=== PATIENT | female | born 1930 | race Caucasian/White ===

== ENCOUNTER 2017-03-20 10:16 | Inpatient (IN) | payer MEDICARE ==
[2017-03-20 11:00] LABS: #Lymphocytes 0.7 thou/uL (1.20-3.40); #Monocytes 0.5 thou/uL (0.11-0.59); #Neutrophils 14.8 thou/uL (1.40-6.50); %Basophils 0.3 % (0.0-1.0); %Eosinophils 0.1 % (0.0-10.0); %Lymphocytes 4.2 % (21.0-51.0); %Monocytes 3.2 % (0.0-10.0); %Neutrophils 92.2 % (42.0-75.0); Hemoglobin 11.9 g/dL (12.0-16.0); Mean Corpuscular HGB CONC 32.4 g/dL (32.0-36.0); Mean Corpuscular Hemoglobin 30.5 pg (27.0-31.0); Mean Corpuscular Volume 94.1 fl (81.0-99.0); Mean Platelet Volume 8.6 fL (7.4-10.4); Platelet Count 178 thou/uL (130-400); RBC Distribution Width 12.9 % (11.5-14.5); Red Blood Cell (RBC) Count 3.92 mill/uL (4.20-5.40)
[2017-03-20] MEDS ORDERED: fentaNYL Citrate/PF 2,000 MCG in Sodium Chloride 0.9% 60 ML IV SCH (11:05)
[2017-03-20] MEDS ORDERED: Fentanyl 100 MCG/2 ML VIAL ONE (11:09)
[2017-03-20 11:25] LABS: ALT (SGPT) 12 U/L (8-55); AST (SGOT) 19 U/L (5-34); Albumin 3.6 g/dL (3.4-4.8); Alkaline Phosphatase 93 U/L (40-150); Anion Gap 16 mmol/L (10-20); BUN (Urea Nitrogen) 19 mg/dL (9.8-20.1); Calc. Creatinine Clearance 0 mL/min (70-130); Calcium 9.6 mg/dL (7.8-10.44); Carbon Dioxide 23 mmol/L (23-31); Chloride 102 mmol/L (98-107); Estimated GFR-MDRD 48; Globulin 3.3 g/dL (2.4-3.5); Glucose 226 mg/dL (83-110); Potassium 4.1 mmol/L (3.5-5.1); Protein, Total 6.9 g/dL (6.0-8.3); Sodium 137 mmol/L (136-145)
[2017-03-20 11:30] LABS: CKMB 2.8 ng/mL (0-6.6); Troponin I 0.071 ng/mL (< 0.028)
--- NOTE | 2017-03-20 11:52 | RAD ---
PORTABLE AP CHEST XRAY: DATE: 03/20/17. HISTORY: The patient is intubated. This is for evaluation of tube placement. COMPARISON: 08/26/13. FINDINGS: The previously noted bibasilar pleural and parenchymal changes have resolved. Mild atelectasis and q uestionable tiny left pleural effusion present. There is a wedge-shaped area of increased density ov erlying the right mid lung field which could be related to focal area of pneumonitis or atelectasis. Dual-lead left subclavian cardiac pacemaking device is noted in place. There are postsurgical change s related to median sternotomy and cardiac valve replacement. A nasogastric tube is noted in place w hich courses into the upper abdomen, but the tip is not imaged. Cardiac silhouette and pulmonary vasculature are within normal limits. Vascular calcification is see n in the thoracic aorta. IMPRESSION: 1. Resolution of bibasilar pleural and parenchymal lung changes seen on the prior study. There is m ild atelectasis present at the left lung base. 2. Patchy density right mid lung zone which could be related to either atelectasis or pneumonitis. A followup chest x-ray is recommended. 3. Nasogastric tube noted in place. The tube courses into the upper abdomen, but the tip is not delma ged. POS: [facility]
[2017-03-20] MEDS ORDERED: Ondansetron HCl/PF 4 MG/2 ML Vial IVP PRN (12:00)
[2017-03-20] MEDS ORDERED: Piperacillin/Tazobactam 4.5 GM in Sodium Chloride 0.9% 100 ML IVPB SCH (12:00)
[2017-03-20] MEDS ORDERED: Acetaminophen 650 MG Suppository PR PRN (12:00)
[2017-03-20 12:20] LABS: Bilirubin Negative (Negative); Blood, Urine Negative (Negative); Clarity CLEAR (Clear); Glucose, Urine (Dipstick) 100 mg/dL (Negative); Leukocyte Negative (Negative); Nitrite Negative (Negative); Protein, Urine (Dipstick) 300 mg/dL (Neg-Trace); Specific Gravity, Urine 1.018 (1.002-1.036); Urobilinogen 0.2 mg/dL (0.2-1.0)
[2017-03-20 12:23] LABS: Base Excess (BEa) 3.3 mEq/L (0 (+/-) 2.5); CO2 Tension 43.2 mmHg (35.0-45.0); Calcium, Ionized 1.2 mmol/L (1.12-1.30); Hematocrit-ABG 38.7 % (36.0-47.0); Hemoglobin (Hb) 11.7 g/dL (12.0-16.0); O2 Tension (PaO2) 121.7 mmHg (80.0-100.0); pH, Arterial 7.43 (7.35-7.45)
[2017-03-20 12:24] LABS: Analyzer IN Cardio ER; Puncture Site RBA
[2017-03-20 12:24] LABS: Bacteria/HPF None Seen HPF (None Seen); Hyaline Casts/LPF 0-3 HYALINE CAST LPF (0-3 Hyaline); Pathc Cast-AUWi Flag 0.54 (0-2.49); RBC/HPF 0-3 HPF (0-3); Squamous Epithelial 0-3 HPF (0-3)
[2017-03-20 12:26] LABS: Renal Epithelial None Seen HPF (0-3); Transitional Epithelial NONE SEEN HPF (0-3)
[2017-03-20 15:10] LABS: Troponin I 0.094 ng/mL (< 0.028)
[2017-03-20 15:22] LABS: Lactic Acid 2.7 mmol/L (0.5-2.2)
[2017-03-20 15:41] VITALS: BMI 29.8
[2017-03-20] MEDS ORDERED: Cefepime 2 GM, Syringe 2.5 ML in Sterile Water 10 ML SLOW IVP SCH (16:00)
[2017-03-20] MEDS ORDERED: Furosemide 40 MG/4 ML VIAL SLOW IVP SCH (16:15)
[2017-03-20] MEDS ORDERED: Sedation Protocol FS ONE (16:17)
[2017-03-20] MEDS ORDERED: Lacri-Lube Opth Oint 3.5 GM TUBE EA EYE PRN (16:17)
[2017-03-20] MEDS ORDERED: Morphine 2 MG/ML SYRINGE SLOW IVP PRN ×2 (16:20→22:24)
[2017-03-20] MEDS ORDERED: DISCONTINUE PREVIOUS NARCOTIC PAIN MEDICATIONS AND BENZODIAZEPINES FS SCH (16:20)
[2017-03-20] MEDS ORDERED: Propofol 1,000 MG/100 ML VIAL IV PRN (16:20)
[2017-03-20] MEDS ORDERED: Lorazepam 2 MG/ML VIAL SLOW IVP PRN (16:20)
--- NOTE | 2017-03-20 16:46 | CON ---
DATE OF CONSULTATION: 03/20/2017 SERVICE: Pulmonary Medicine. REASON FOR CONSULTATION: Respiratory failure. HISTORY OF PRESENT ILLNESS: The patient is an 86-year-old white female. She was found down at her h ouse. Her family members initiated CPR because they were advised to do so by 911 when they did not f eel a pulse. That being said, no medications or interventions were done. Other than that by the sagar e EMS arrived, she did have a pulse. She was agonal and so she was subsequently intubated. This was a traumatic intubation with 6-0 endotracheal tube chipping the tooth and apparently causing some deg ree of laceration of the tongue. The suggestion was that she was actually biting on her tongue and t hat was not caused by the procedure. Either way, she has known cardiomyopathy and she was recently h ospitalized at [facility] for respiratory failure associated with respiratory syncytial virus. She currently cannot provide any additional elements of the historical illness. Family suggesting th at prior to her being found down, she was last seen recovering from her previous hospital stay as exp ected. PHYSICAL EXAMINATION: VITAL SIGNS: Afebrile with T-max of 99.2. Pulse 60, blood pressure 154/46, respirations 17, saturat ion 94% on 23% FiO2 and a PEEP of 5. GENERAL: Patient is intubated. She is under the influence of some sedation. That being said, she i s essentially nonresponsive presently. HEENT: Normocephalic, atraumatic. Sclerae are white, conjunctivae pink. Oral mucosa is moist witho ut lesions. LUNGS: Decent air entry. There is no prolonged expiratory phase. Rhonchi are present bilaterally, but a little worse on the right. HEART: Normal rate. Irregular. ABDOMEN: Soft, nontender, nondistended. Bowel sounds are positive. MUSCULOSKELETAL: No cyanosis or clubbing. There is diffuse 1-2+ pitting throughout the lower extrem ities. GENITOURINARY: Rojas catheter in place. NEUROLOGIC: She does not withdraw from noxious stimuli in all 4 extremities. Pupils are fixed and n onreactive though she was on fentanyl at 200 mcg per hour and her pupils are nearly pinpoint. No gag or cough is elicited. She is overbreathing the ventilator quite comfortably. Doll's eyes are curre ntly abnormal. LABORATORY DATA: WBC 16.0, hemoglobin 11.9, and platelets 178,000. A pH 7.43, pCO2 43, pO2 121 on 5 0% FiO2 at that time. Basic metabolic profile and liver function studies are essentially unremarkabl e. Cardiac enzyme is up trending to 0.094. Lactate is also up trending to 0.27. Urinalysis is unre markable. Influenza A and B is unremarkable. As previously noted, recent respiratory PCR was positi ve for RSV, by history. IMAGING: Chest x-ray demonstrates endotracheal tube is 7 cm above the foreign. Enteric catheter is c oursing midline, but I can see where it terminates. PAST MEDICAL HISTORY: 1. Chronic systolic heart failure. 2. Severe aortic stenosis. 3. Coronary artery disease. 4. Hypertension. 5. Dyslipidemia. 6. History of ovarian cancer. 7. Type 2 diabetes mellitus. 8. Major depressive disorder. 9. Peripheral neuropathy. PAST SURGICAL HISTORY: 1. Coronary bypass graft x1 vessel. 2. Pacemaker placement. 3. Aortic valve replacement with bioprosthetic valve. ALLERGIES: PENICILLIN. MEDICATIONS: List for her inpatient medications was reviewed. Multiple updates were made at this ti wv. FAMILY HISTORY: Noncontributory. SOCIAL HISTORY: Previously, there are no reports of alcohol, tobacco or illicit drug use. Previous relative that was taking care of her was her niece. REVIEW OF SYSTEMS: Cannot be obtained as the patient is currently intubated and obtunded. ASSESSMENT: 1. Metabolic encephalopathy (versus anoxic brain injury). 2. Acute hypoxic respiratory failure, minimal. 3. Acute on chronic systolic and valvular heart failure. 4. Non-ST elevation myocardial infarction, minimal PLAN: We will support the patient on mechanical ventilation. If she fails to wake up over the next 24 hours, imaging of the brain will need to be obtained. Pulmonary or Critical Care will continue to follow while the patient remains in this location. In the meantime, we will provide the patient wit h empiric antibiotics covering adonay. CRITICAL CARE TIME: 30 minutes.
[2017-03-20 17:14] LABS: Amphetamine Not Detected (NotDetected); Barbiturates Screen Not Detected (NotDetected); Benzodiazepine Screen Not Detected (NotDetected); Cocaine Metabolite Screen Not Detected (NotDetected); Medtox Control Line Valid? VALID (VALID); Medtox Reader # READER 4; Methadone Not Detected (NotDetected); Methamphetamine Not Detected (NotDetected); Opiate Screen Not Detected (NotDetected); Oxycodone Screen Not Detected (NotDetected); Phencyclidine (PCP) Not Detected (NotDetected); THC/Cannabinoid Screen Not Detected (NotDetected); Tricyclic Screen Not Detected (NotDetected)
[2017-03-20 18:24] LABS: Troponin I 0.105 ng/mL (< 0.028)
--- NOTE | 2017-03-20 19:36 | CT ---
CT BRAIN WITHOUT CONTRAST 03/20/17 HISTORY: Left scalp bruise. Altered mental status. COMPARISON: None. FINDINGS: Large left subdural hematoma measuring up to 21 mm. There is subsequent left to right midline shift a pproximately 15 mm. There is subfalcine and left uncal herniation. There is dilatation of the right l ateral ventricle with effacement of the left lateral ventricle. No calvarial fracture is appreciated. Bilateral maxillary sinusitis. IMPRESSION: Large left subdural hematoma with 15 mm left to right shift and subsequent subfalcine and left uncal herniation. There is also dilatation of the right lateral ventricle. Neto Sidhu, nurse taking care of patient notified of the findings at 5:24 p.m.
[2017-03-20] MEDS ORDERED: Famotidine 20 MG TAB PO SCH (21:00)
[2017-03-20] MEDS ORDERED: Cefepime 2 GM in Sodium Chloride 0.9% 100 ML IVPB SCH (21:00)
--- NOTE | 2017-03-21 00:08 | CON ---
DATE OF CONSULTATION: 03/20/2017 CRITICAL CARE NOTE The patient is an 86-year-old woman who suffered a cardiac arrest this morning. The patient has a long history of aortic valve disease and coronary artery disease. She has previously undergone coronary bypass graft surgery x1. The patient also has a history of placement of a bioprosthetic aortic valve. The patient today had a cardiac arrest. She was resuscitated by her family. The patient brought to the emergency room. The patient was emergently intubated. The patient is unable to give a coherent history PAST MEDICAL HISTORY: 1. Coronary artery disease. 2. Aortic valve replacement. 3. Diabetes mellitus. 4. Hypertension. PAST SURGICAL HISTORY: She had pacemaker placement. ALLERGIES: PENICILLIN. SOCIAL HISTORY: Unobtainable. REVIEW OF SYSTEMS: Unobtainable. PHYSICAL EXAMINATION: GENERAL: Intubated woman who is obese. VITAL SIGNS: Blood pressure is 143/47, NECK: Full. LUNGS: Coarse breath sounds bilateral. HEART: Regular rate and rhythm. Normal S1, S2 with 3/6 holosystolic murmur. ABDOMEN: Distended. EXTREMITIES: Mild edema. LABORATORY DATA: Sodium 137, potassium 4.1, chloride 102, bicarbonate 23, BUN 19, creatinine 1.08, glucose 226, troponin 0.094. White blood cell count 16.0, hemoglobin 11.9, hematocrit 36.9, platelets 178. Electronic atrial pacemaker with nonspecific ST abnormality. IMPRESSION: 1. Status post cardiac arrest. 2. History of coronary bypass surgery. 3. History of aortic valve replacement. 4. Diabetes mellitus. 5. Hypertension. 6. History of pacemaker placement. This unfortunate woman has suffered a cardiac arrest. She has a history of severe valvular heart disease. The patient has appeared to have suffered severe neurologic injury. The patient has been made DNR. We will follow this patient with you through her hospitalization. Critical care time 30 minutes. LACI
[2017-03-21] MEDS: Lorazepam 2 MG/ML VIAL SLOW IVP PRN ×3 (01:22→13:44)
[2017-03-21] MEDS ORDERED: Furosemide 40 MG/4 ML VIAL SLOW IVP SCH (06:00)
--- NOTE | 2017-03-21 07:00 | HP ---
I was unable to obtain any information from this patient; however, according to ER record, the patien t was found down at home and CPR was initiated by family members prior to EMS arrival at the scene. On arrival, the EMS decided to go ahead and intubate the patient. The patient had a pulse at the sagar e of intubation. The patient was previously treated at [facility] for a respiratory syncytial vir and sent home prior to this incident. The patient is being admitted status post respiratory failu re on life support to us. PAST MEDICAL HISTORY: Significant for recent treatment for respiratory syncytial virus, congestive h eart failure, ice cream server aortic stenosis, coronary artery disease, hypertension, dyslipidemia, history of ovarian carcinoma, type 2 diabetes, peripheral neuropathy. ALLERGIES: PENICILLIN. MEDICATIONS: Reviewed and as documented on [employer]. FAMILY HISTORY: None significantly related to the presenting illness. SOCIAL HISTORY: The medical record did not indicate any use of tobacco, illicit drugs, or alcohol. REVIEW OF SYTEMS: Cannot be obtained from this patient who is already intubated. PHYSICAL EXAMINATION: GENERAL: The patient was found to be intubated with endotracheal tube in place. CARDIOVASCULAR SYSTEM: First and second heart sounds were heard. RESPIRATORY SYSTEM: DIGESTIVE SYSTEM: Revealed a benign abdomen. EXTREMITIES: No peripheral edema. SKIN: No new gross rash. NEUROLOGIC: The patient is sedated and intubated. IMPRESSION: 1. Cardiopulmonary failure query cause, possibly in the context of pulmonary disease. 2. History of coronary artery disease. 3. History of hypertension. 4. Lactic acidosis with the possibility of patient having sepsis. PLAN: 1. Admit patient to ICU. 2. Pulmonary critical care consult. 3. IV fluid resuscitation. 4. Complete serial cardiac enzymes evaluation. 5. Further management to be dependent on the clinical course.
[2017-03-21] MEDS ORDERED: Enoxaparin Sodium 30 MG/0.3 ML SYRINGE SC SCH (09:00)
--- NOTE | 2017-03-21 15:38 | EKG ---
Test Reason : RESP FAILURE Blood Pressure : / mmHG Vent. Rate : 060 BPM Atrial Rate : 227 BPM P-R Int : 150 ms QRS Dur : 078 ms QT Int : 492 ms P-R-T Axes : 024 -06 042 degrees QTc Int : 492 ms Electronic atrial pacemaker Prolonged QT Abnormal ECG No change from 08/2013 Confirmed by VICKI ROLDAN, ARIAN ([id number]), social media editor ANGIE ELLIOTT ([id number]) on 03/21/2017 3:38:27 PM Referred By: VICKI Confirmed By:ARIAN COHEN MD
[2017-03-21] MEDS: Acetaminophen 1,000 MG in Premix Bag 1 BAG IVPB SCH (18:51)
--- NOTE | 2017-03-21 19:31 | PDOC.PN ---
- Subjective Encounter Start Date: 03/21/17 Encounter Start Time: 19:29 Subjective: seen and examined on comfort measures - Objective Resuscitation Status: Resuscitation Status DNR:Do Not Resuscitate Vital Signs & Weight: Vital Signs (12 hours) Temp Pulse Resp BP Pulse Ox 03/21/17 18:27 102.3 F H 105 H 28 H 133/75 94 L 03/21/17 09:09 99.4 F 84 28 H 122/76 91 L 03/21/17 08:00 99.4 F 84 28 H Weight Admit Weight 190 lb 7.67 oz Most Recent Monitor Data Heart Rate from ECG 108 NIBP 139/71 NIBP BP-Mean 90 Respiration from ECG 23 SpO2 82 I&O: 03/20/17 03/21/17 03/22/17 06:59 06:59 06:59 Output Total 1905 200 Balance -1905 -200 Result Diagrams: 03/20/17 10:48 03/20/17 10:48 Phys Exam - Physical Examination Constitutional: NAD HEENT: PERRLA Neck: no nodes, no JVD Respiratory: wheezing present Cardiovascular: RRR, no significant murmur Gastrointestinal: soft, non-tender Dx/Plan (1) Respiratory failure Code(s): J96.90 - RESPIRATORY FAILURE, UNSP, UNSP W HYPOXIA OR HYPERCAPNIA Status: Acute (2) Aortic valve stenosis Code(s): I35.0 - NONRHEUMATIC AORTIC (VALVE) STENOSIS Status: Chronic (3) Diabetes mellitus, type II Status: Chronic - Plan Comfort measures * .
--- NOTE | 2017-03-21 23:16 | HP ---
DATE OF SERVICE: 03/21/2017 SERVICE: Pulmonary Medicine. INTERVAL HISTORY: Yesterday, I had a very long conversation with the patient's family; shortly after, I made my dictation. I realize that they had gone over to her house at 1:00 in the morning because the patient called them. She had fallen out of her chair. She hit the side of her head. She had an ecchymoses at that location on her hair. They went over to her house and helped her back into her chair and everything was fine when they left her. The following morning, they found her completely unresponsive. We got a stat CT of the head. There was a very large subdural hematoma with midline shift and herniation. We talked to them about what needed to occur in order to give her a chance at survival. They understood that would require operation, and likely long-term physical therapy. She was likely never going to be independent in her function again. They suggested that she would want that for herself and requested that we transition her over to comfort care only. As such, extubation occurred. She continued to breathe and she was moved to the floor. Otherwise, there were no events overnight. The patient remains comfortable and is having intermittent fevers. PHYSICAL EXAMINATION: VITAL SIGNS: T-max 102.3, pulse 84, blood pressure 133/75, respirations 28, saturation 94% on 3 liters nasal cannula. GENERAL: The patient is awake and alert. No apparent distress. HEENT: Normocephalic. Ecchymoses over the left hindu. LUNGS: Rhonchi are present. There is no prolonged expiratory phase or wheezing. HEART: Tachycardic. Regular. ABDOMEN: Soft, nontender, nondistended. Bowel sounds are positive. MUSCULOSKELETAL: No cyanosis or clubbing. No pitting in the bilateral lower extremities. ASSESSMENT: 1. Respiratory failure secondary to large stroke. 2. Subdural hematoma with midline shift, and herniation. 3. Acute on chronic systolic and valvular heart failure. 4. Non-ST elevation myocardial infarction secondary to stroke. PLAN: The patient is on comfort measures only. She can be transitioned out of the hospital under the care of hospice if she continues to breathe any longer. She no longer has further requirements for Pulmonary or Critical Care opinion. As such, I will sign off. Please call with additional questions or concerns. LACI
[2017-03-22] MEDS: Acetaminophen 1,000 MG in Premix Bag 1 BAG IVPB SCH ×4 (01:14→17:59)
--- NOTE | 2017-03-22 09:16 | PDOC.PN ---
- Subjective Encounter Start Date: 03/22/17 Encounter Start Time: 09:15 Subjective: seen no new complaint - Objective Resuscitation Status: Resuscitation Status DNR:Do Not Resuscitate Vital Signs & Weight: Vital Signs (12 hours) Temp Pulse Resp BP BP Pulse Ox 03/22/17 07:50 99.4 F 144 H 30 H 119/70 91 L 03/22/17 05:22 100.6 F H 03/22/17 04:40 102.2 F H 20 111/77 96 03/22/17 00:51 101.9 F H 86 17 121/78 95 03/21/17 21:41 102.6 F H 92 21 H 126/78 94 L Weight Admit Weight 190 lb 7.67 oz Weight 182 lb 1.629 oz Most Recent Monitor Data Heart Rate from ECG 108 NIBP 139/71 NIBP BP-Mean 90 Respiration from ECG 23 SpO2 82 I&O: 03/21/17 03/22/17 03/23/17 06:59 06:59 06:59 Intake Total 200 Output Total 1905 500 Balance -1905 -300 Result Diagrams: 03/20/17 10:48 03/20/17 10:48 Phys Exam - Physical Examination Constitutional: NAD HEENT: PERRLA, moist MMs, sclera anicteric Neck: no nodes, no JVD, supple, full ROM Respiratory: no wheezing, no rales, no rhonchi, clear to auscultation bilateral Cardiovascular: RRR, no significant murmur Gastrointestinal: soft, non-tender, no distention Musculoskeletal: no edema, pulses present Dx/Plan (1) Respiratory failure Code(s): J96.90 - RESPIRATORY FAILURE, UNSP, UNSP W HYPOXIA OR HYPERCAPNIA Status: Acute (2) Aortic valve stenosis Code(s): I35.0 - NONRHEUMATIC AORTIC (VALVE) STENOSIS Status: Chronic (3) Diabetes mellitus, type II Status: Chronic - Plan cont current plan of care, social sciences chair Comfort measures * .
[2017-03-22] MEDS: Lorazepam 2 MG/ML VIAL SLOW IVP PRN ×2 (10:17→15:40)
[2017-03-22 12:27] VITALS: BP 114/76; TEMP 98.7
--- NOTE | 2017-03-23 15:11 | DS ---
This is a discharge summary as well as the summary. SUMMARY: An 86-year-old female patient who was brought in intubated out in the field by EMS, having fallen out of chair the previous day and later found unresponsive. On presentation, the patient was already intubated, transferred to ICU, was consulted upon by both Cardiology and Pulmonary and [facility]. Eventually, a CAT scan of the brain did reveal huge subdural hematoma with midline shift and herniation. As a result of this, family discussion was held and the family expressed the desire of the patient to be transitioned over to comfort care. As a result, decision was taken to ex tubate this patient and transfer to the floor. On 03/22/2017 around 4:00 p.m., the patient a nd this was confirmed after evaluating the cardiopulmonary system. No autopsy was requested by the haylie haney and the body was released. CAUSE OF : 1. Likely large subdural hematoma, status post fall. 2. Respiratory failure related to likely large subdural hematoma, status post fall. 3. Non-ST elevation myocardial infarction likely secondary to the stroke. Total time spent that day including [id number] encounter took about 31 minutes.
== END 2017-03-22 20:41 | disposition expired | DRG 82 ==
LOC: ERS 10:16 → ERHOLD 12:35 → CCU 14:31 → SURG A 03-21 00:40
PROVIDERS: ADMIT Internal Medicine Nephrology; ATTEND Internal Medicine Nephrology
PROC: 5A1945Z Respiratory Ventilation, 24-96 Consecutive Hours (ICD-10-PCS; principal; 2017-03-20)
DX: I21.4 Non-ST elevation (NSTEMI) myocardial infarction; G93.5 Compression of brain; J96.01 Acute respiratory failure with hypoxia; I46.9 Cardiac arrest, cause unspecified; L89.152 Pressure ulcer of sacral region, stage 2; G93.41 Metabolic encephalopathy; E11.22 Type 2 diabetes mellitus with diabetic chronic kidney disease; I50.23 Acute on chronic systolic (congestive) heart failure; I13.0 Hypertensive heart and chronic kidney disease with heart failure and stage 1 through stage 4 chronic kidney disease, or unspecified chronic kidney disease; I42.9 Cardiomyopathy, unspecified; E87.2 Acidosis; G62.9 Polyneuropathy, unspecified; W07.XXXA Fall from chair, initial encounter; Z51.5 Encounter for palliative care; E11.9 Type 2 diabetes mellitus without complications; I25.10 Atherosclerotic heart disease of native coronary artery without angina pectoris; Z95.0 Presence of cardiac pacemaker; N18.9 Chronic kidney disease, unspecified; E78.5 Hyperlipidemia, unspecified; Z95.1 Presence of aortocoronary bypass graft; Z66 Do not resuscitate; I35.0 Nonrheumatic aortic (valve) stenosis
CPT/HCPCS: 36415; 51702; 70450; 71045; 80053; 80306; 81003; 81015; 82553; 82805; 83605; 84484; 85025; 93005; 94002; 96361; 96365; 96366; 96368; 96375; A4216; J0131; J0692; J1940; J1956; J2060; J2543; J3010; J3370; J7050